=== PATIENT | female | born 1935 | race African-American/Black ===

== ENCOUNTER 2019-01-25 17:09 | Inpatient (IN) ==
[2019-01-25] MEDS ORDERED: SODIUM CHLORIDE 0.9% 1,000 ML IV STA (18:15)
[2019-01-25 19:03] LABS: Basophils # 0.1 10*3/uL (0.0-0.2); Basophils % 0.4 % (0.0-0.8); Eosinophils % 0.2 % (0.00-10.9); Hematocrit 34.6 VOL% (35.7-47.0); Hemoglobin 10.6 GM/DL (12.0-16.0); Immature Granulocytes % 0.5 %; Immature Granulocytes Absolute 0.07 #; Mean Corpuscular HGB Conc 30.6 GM/DL (32-36); Mean Corpuscular Volume 78.3 FL (87-102); Mean Platelet Volume 12.2 FL (9.6-12.0); Monocytes % 8.2 % (1.7-12.7); Neutrophils % 83.7 % (38.7-73.9); Red Blood Count 4.42 MC/CUMM (3.8-5.5); Red Cell Distribution Width 19.9 % (9.3-17.3); White Blood Count 13.5 T/CUMM (4-12)
[2019-01-25 19:04] LABS: Platelet Count 290 T/CUMM (130-400)
[2019-01-25 19:09] LABS: PT Patient Result 10.5 SECS; Partial Thromboplastin Time 26.1 SECS (0-40)
[2019-01-25 19:13] LABS: Alanine Aminotransferase 20 U/L (13-56); Albumin 3.2 G/DL (3.4-5.0); Alkaline Phosphatase 88 U/L (45-117); Aspartate Amino Transferase 16 U/L (0-37); Bilirubin,Total < 0.39 MG/DL (0.2-1.0); Blood Urea Nitrogen 21 MG/DL (7-18); Calcium 9.1 MG/DL (8.5-10.1); Glucose 118 MG/DL (74-106); Total Protein 8.6 G/DL (6.4-8.3)
[2019-01-25 19:14] LABS: Troponin I < 0.015 NG/ML (0.00-0.045)
[2019-01-25] MEDS ORDERED: PANTOPRAZOLE 40 MG VIAL IV SCH (23:07)
[2019-01-26] MEDS: SODIUM CHLORIDE 0.9% 1,000 ML IV SCH ×2 (00:02→12:30)
[2019-01-26] MEDS: FAMOTIDINE 20 MG/2 ML VIAL IV SCH (01:33)
[2019-01-26 05:47] LABS: Basophils % 0.3 % (0.0-0.8); Eosinophils # 0.1 10*3/uL (0.0-0.87); Eosinophils % 0.6 % (0.00-10.9); Hematocrit 30.7 VOL% (35.7-47.0); Hemoglobin 9.2 GM/DL (12.0-16.0); Immature Granulocytes % 0.4 %; Immature Granulocytes Absolute 0.04 #; Lymphocytes # 1.1 10*3/uL (1.4-4.0); Lymphocytes % 11.1 % (21.3-54.2); Mean Corpuscular Volume 78.5 FL (87-102); Mean Platelet Volume 10.6 FL (9.6-12.0); Monocytes % 11.1 % (1.7-12.7); Neutrophils % 76.5 % (38.7-73.9); Platelet Count 226 T/CUMM (130-400); Red Blood Count 3.91 MC/CUMM (3.8-5.5); Red Cell Distribution Width 19.8 % (9.3-17.3); White Blood Count 9.5 T/CUMM (4-12)
[2019-01-26 06:00] LABS: Calcium 8.5 MG/DL (8.5-10.1); Osmolality,Calculated 280.4 MOS/KG (273-304)
[2019-01-26] MEDS ORDERED: DEXTROSE 10% 250 ML BAG IV PRN (16:00)
[2019-01-26] MEDS ORDERED: GLUCAGON 1 MG VIAL IM PRN (16:00)
[2019-01-26] MEDS: INSULIN REGULAR 100 UNIT/ML SUBCUT SCH ×2 (18:31→23:30)
[2019-01-26] MEDS: SIMVASTATIN 10 MG TABLET PO SCH (20:56)
[2019-01-27 01:10] LABS: Apearance,Urine CLEAR (Clear); Bacteria,Urine Occasional /HPF (Few); Bilirubin,Urine Negative (Negative); Blood, Urine Negative (Negative); Glucose,Urine (UA) Negative (Negative); Hyaline Casts,Urine 3 /LPF (0-3); Ketones,Urine 20 mg/dL (Negative); Mucus,Urine Occasional /LPF (Occasional); Nitrite,Urine Negative (Negative); Protein,Urine Negative; RBC,Urine <1 /HPF (0-4); Squamous Epithelial Cell,Urine Occasional /HPF (0-10); Urine Color Yellow (Yellow); Urine Specific Gravity 1.015 (1.001-1.035); WBC,Urine 1 /HPF (0-6)
[2019-01-27] MEDS: FAMOTIDINE 20 MG/2 ML VIAL IV SCH (01:55)
[2019-01-27] MEDS: SODIUM CHLORIDE 0.9% 1,000 ML IV SCH ×2 (01:55→20:43)
[2019-01-27 05:53] LABS: Basophils % 0.4 % (0.0-0.8); Eosinophils # 0.1 10*3/uL (0.0-0.87); Hematocrit 31.6 VOL% (35.7-47.0); Hemoglobin 9.6 GM/DL (12.0-16.0); Immature Granulocytes % 0.5 %; Immature Granulocytes Absolute 0.05 #; Lymphocytes # 1.5 10*3/uL (1.4-4.0); Lymphocytes % 14.1 % (21.3-54.2); Mean Corpuscular HGB Conc 30.4 GM/DL (32-36); Mean Platelet Volume 11.2 FL (9.6-12.0); Monocytes % 10.6 % (1.7-12.7); Neutrophils % 73.4 % (38.7-73.9); Platelet Count 245 T/CUMM (130-400); White Blood Count 10.6 T/CUMM (4-12)
[2019-01-27] MEDS: INSULIN REGULAR 100 UNIT/ML SUBCUT SCH ×3 (06:12→19:05)
[2019-01-27 06:23] LABS: Albumin 2.7 G/DL (3.4-5.0); Bilirubin,Total 0.4 MG/DL (0.2-1.0); Calcium 8.7 MG/DL (8.5-10.1); Osmolality,Calculated 279.4 MOS/KG (273-304); Total Protein 7.1 G/DL (6.4-8.3)
[2019-01-27] MEDS ORDERED: LIDOCAINE 100 MG/5 ML SYRINGE ONE (09:00)
[2019-01-27] MEDS ORDERED: PROPOFOL 200 MG/20 ML VIAL IV ONE (09:00)
[2019-01-27] MEDS: LACTATED RINGERS 1,000 ML IV SCH (09:48)
[2019-01-27] MEDS: VERAPAMIL SR 240 MG TABLET PO SCH (14:09)
[2019-01-27] MEDS: ESCITALOPRAM 10 MG TABLET PO SCH (14:09)
[2019-01-27] MEDS: PANTOPRAZOLE 40 MG TABLET PO SCH ×2 (14:09→21:48)
[2019-01-27] MEDS: SIMVASTATIN 10 MG TABLET PO SCH (21:48)
[2019-01-28] MEDS: FAMOTIDINE 20 MG/2 ML VIAL IV SCH (01:37)
[2019-01-28] MEDS: INSULIN REGULAR 100 UNIT/ML SUBCUT SCH ×5 (05:30→23:52)
[2019-01-28] MEDS: LACTATED RINGERS 1,000 ML IV SCH (08:09)
[2019-01-28] MEDS: VERAPAMIL SR 240 MG TABLET PO SCH (09:28)
[2019-01-28] MEDS: ESCITALOPRAM 10 MG TABLET PO SCH (09:28)
[2019-01-28] MEDS: PANTOPRAZOLE 40 MG TABLET PO SCH ×2 (09:28→20:27)
[2019-01-28] MEDS: SODIUM CHLORIDE 0.9% 1,000 ML IV SCH ×2 (09:30→23:51)
[2019-01-28] MEDS: SIMVASTATIN 10 MG TABLET PO SCH (20:27)
[2019-01-29] MEDS: FAMOTIDINE 20 MG/2 ML VIAL IV SCH (02:24)
[2019-01-29] MEDS: INSULIN REGULAR 100 UNIT/ML SUBCUT SCH ×3 (05:44→18:14)
[2019-01-29] MEDS: PANTOPRAZOLE 40 MG TABLET PO SCH (09:50)
[2019-01-29] MEDS: LACTULOSE 20 GM/30 ML UDCUP PO SCH (09:50)
[2019-01-29] MEDS: ESCITALOPRAM 10 MG TABLET PO SCH (09:50)
[2019-01-29] MEDS: VERAPAMIL SR 240 MG TABLET PO SCH (09:50)
[2019-01-29] MEDS: LACTATED RINGERS 1,000 ML IV SCH (09:51)
[2019-01-29] MEDS: ONDANSETRON 4 MG/2 ML VIAL IV PRN ×2 (12:26→16:23)
[2019-01-29] MEDS: SODIUM CHLORIDE 0.9% 1,000 ML IV SCH ×2 (13:05→23:56)
[2019-01-29] MEDS: SIMVASTATIN 10 MG TABLET PO SCH (21:12)
[2019-01-30] MEDS: INSULIN REGULAR 100 UNIT/ML SUBCUT SCH ×4 (00:45→17:35)
[2019-01-30] MEDS: FAMOTIDINE 20 MG/2 ML VIAL IV SCH (00:46)
[2019-01-30 04:46] LABS: Basophils % 0.2 % (0.0-0.8); Eosinophils % 0.1 % (0.00-10.9); Hematocrit 30.5 VOL% (35.7-47.0); Hemoglobin 9.1 GM/DL (12.0-16.0); Immature Granulocytes % 0.6 %; Immature Granulocytes Absolute 0.08 #; Lymphocytes # 1.2 10*3/uL (1.4-4.0); Lymphocytes % 8.2 % (21.3-54.2); Mean Corpuscular HGB Conc 29.8 GM/DL (32-36); Mean Platelet Volume 11.6 FL (9.6-12.0); Monocytes % 7.9 % (1.7-12.7); Platelet Count 257 T/CUMM (130-400); Red Blood Count 3.86 MC/CUMM (3.8-5.5); Red Cell Distribution Width 19.7 % (9.3-17.3); White Blood Count 14.4 T/CUMM (4-12)
[2019-01-30 05:02] LABS: Calcium 8.9 MG/DL (8.5-10.1); Osmolality,Calculated 284.3 MOS/KG (273-304)
[2019-01-30] MEDS: LACTULOSE 20 GM/30 ML UDCUP PO SCH (09:00)
[2019-01-30] MEDS: LACTATED RINGERS 1,000 ML IV SCH (09:41)
[2019-01-30] MEDS: PANTOPRAZOLE 40 MG VIAL IV SCH ×2 (12:34→20:18)
[2019-01-30] MEDS: SODIUM CHLORIDE 0.9% 1,000 ML IV SCH (12:36)
[2019-01-30] MEDS: ESCITALOPRAM 10 MG TABLET PO SCH (12:39)
[2019-01-30] MEDS: VERAPAMIL SR 240 MG TABLET PO SCH (12:39)
[2019-01-30] MEDS: SIMVASTATIN 10 MG TABLET PO SCH (20:18)
[2019-01-31] MEDS: SODIUM CHLORIDE 0.9% 1,000 ML IV SCH ×3 (00:24→15:46)
[2019-01-31] MEDS: INSULIN REGULAR 100 UNIT/ML SUBCUT SCH ×4 (00:24→17:55)
[2019-01-31] MEDS: FAMOTIDINE 20 MG/2 ML VIAL IV SCH (00:36)
[2019-01-31 07:52] LABS: Basophils % 0.3 % (0.0-0.8); Eosinophils # 0.3 10*3/uL (0.0-0.87); Eosinophils % 2.3 % (0.00-10.9); Hemoglobin 9.1 GM/DL (12.0-16.0); Immature Granulocytes % 0.8 %; Immature Granulocytes Absolute 0.09 #; Lymphocytes # 1.1 10*3/uL (1.4-4.0); Lymphocytes % 9.4 % (21.3-54.2); Mean Corpuscular HGB Conc 29.4 GM/DL (32-36); Mean Corpuscular Volume 79.7 FL (87-102); Mean Platelet Volume 11.3 FL (9.6-12.0); Monocytes % 7.4 % (1.7-12.7); Neutrophils % 79.8 % (38.7-73.9); Platelet Count 254 T/CUMM (130-400); Red Blood Count 3.89 MC/CUMM (3.8-5.5); Red Cell Distribution Width 20.4 % (9.3-17.3); White Blood Count 11.9 T/CUMM (4-12)
[2019-01-31 08:10] LABS: Albumin 2.9 G/DL (3.4-5.0); Bilirubin,Total 0.6 MG/DL (0.2-1.0); Total Protein 7.1 G/DL (6.4-8.3)
[2019-01-31] MEDS: ESCITALOPRAM 10 MG TABLET PO SCH (09:08)
[2019-01-31] MEDS: VERAPAMIL SR 240 MG TABLET PO SCH (09:08)
[2019-01-31] MEDS: PANTOPRAZOLE 40 MG VIAL IV SCH ×2 (09:08→21:33)
[2019-01-31] MEDS: LACTULOSE 20 GM/30 ML UDCUP PO SCH ×2 (09:09→09:24)
[2019-01-31] MEDS: LACTATED RINGERS 1,000 ML IV SCH (09:09)
[2019-01-31] MEDS: SIMVASTATIN 10 MG TABLET PO SCH (21:33)
[2019-02-01] MEDS: FAMOTIDINE 20 MG/2 ML VIAL IV SCH (02:56)
[2019-02-01] MEDS: ONDANSETRON 4 MG/2 ML VIAL IV PRN ×2 (03:02→12:58)
[2019-02-01] MEDS: SODIUM CHLORIDE 0.9% 1,000 ML IV SCH ×2 (05:23→16:22)
[2019-02-01] MEDS: INSULIN REGULAR 100 UNIT/ML SUBCUT SCH ×4 (06:01→18:02)
[2019-02-01 06:18] LABS: Basophils % 0.3 % (0.0-0.8); Eosinophils # 0.1 10*3/uL (0.0-0.87); Eosinophils % 0.6 % (0.00-10.9); Hematocrit 30.2 VOL% (35.7-47.0); Immature Granulocytes % 0.9 %; Immature Granulocytes Absolute 0.11 #; Lymphocytes # 1.2 10*3/uL (1.4-4.0); Lymphocytes % 9.3 % (21.3-54.2); Mean Corpuscular HGB Conc 29.5 GM/DL (32-36); Mean Corpuscular Volume 79.5 FL (87-102); Mean Platelet Volume 12.2 FL (9.6-12.0); Monocytes % 6.4 % (1.7-12.7); Neutrophils % 82.5 % (38.7-73.9); Platelet Count 252 T/CUMM (130-400); Red Cell Distribution Width 20.2 % (9.3-17.3); White Blood Count 12.9 T/CUMM (4-12)
[2019-02-01 06:20] LABS: Hemoglobin 8.9 GM/DL (12.0-16.0)
[2019-02-01 06:32] LABS: Albumin 2.7 G/DL (3.4-5.0); Bilirubin,Total 0.5 MG/DL (0.2-1.0); Calcium 8.7 MG/DL (8.5-10.1); Hypochromasia 1+; Osmolality,Calculated 284.8 MOS/KG (273-304); Platelet Estimate Adequate
[2019-02-01] MEDS: VERAPAMIL SR 240 MG TABLET PO SCH (09:17)
[2019-02-01] MEDS: PANTOPRAZOLE 40 MG VIAL IV SCH ×2 (09:21→20:15)
[2019-02-01] MEDS: LACTATED RINGERS 1,000 ML IV SCH (09:23)
[2019-02-01] MEDS: LACTULOSE 20 GM/30 ML UDCUP PO SCH (09:23)
[2019-02-01] MEDS: FLUTICASONE 50 MCG NASAL SPRAY 16 GM BOTTLE BOTH NARES SCH ×2 (09:23→20:10)
[2019-02-01] MEDS: ESCITALOPRAM 10 MG TABLET PO SCH (09:24)
[2019-02-01] MEDS: SIMVASTATIN 10 MG TABLET PO SCH (20:13)
[2019-02-02] MEDS: INSULIN REGULAR 100 UNIT/ML SUBCUT SCH ×4 (00:15→17:39)
[2019-02-02] MEDS: ONDANSETRON 4 MG/2 ML VIAL IV PRN ×2 (05:50→11:26)
[2019-02-02] MEDS: SODIUM CHLORIDE 0.9% 1,000 ML IV SCH ×2 (06:17→18:07)
[2019-02-02 06:26] LABS: Basophils % 0.3 % (0.0-0.8); Eosinophils # 0.1 10*3/uL (0.0-0.87); Hematocrit 29.2 VOL% (35.7-47.0); Hemoglobin 8.7 GM/DL (12.0-16.0); Immature Granulocytes Absolute 0.13 #; Lymphocytes # 0.8 10*3/uL (1.4-4.0); Lymphocytes % 6.1 % (21.3-54.2); Mean Corpuscular HGB Conc 29.8 GM/DL (32-36); Mean Corpuscular Volume 79.3 FL (87-102); Mean Platelet Volume 10.7 FL (9.6-12.0); Monocytes % 7.6 % (1.7-12.7); NRBC # 0.02 10*3/uL; Platelet Count 234 T/CUMM (130-400); Red Blood Count 3.68 MC/CUMM (3.8-5.5)
[2019-02-02 06:47] LABS: Alanine Aminotransferase 9 U/L (13-56); Albumin 2.8 G/DL (3.4-5.0); Alkaline Phosphatase 69 U/L (45-117); Aspartate Amino Transferase 13 U/L (0-37); Bilirubin,Total < 0.39 MG/DL (0.2-1.0); Blood Urea Nitrogen 12 MG/DL (7-18); Calcium 8.8 MG/DL (8.5-10.1); Glucose 114 MG/DL (74-106); Osmolality,Calculated 281.3 MOS/KG (273-304); Total Protein 6.9 G/DL (6.4-8.3)
[2019-02-02 08:12] LABS: Cancer Antigen 19-9 9.9 U/ML (0-37)
[2019-02-02] MEDS: VERAPAMIL SR 240 MG TABLET PO SCH (08:44)
[2019-02-02] MEDS: PANTOPRAZOLE 40 MG VIAL IV SCH ×2 (08:44→20:56)
[2019-02-02] MEDS: ESCITALOPRAM 10 MG TABLET PO SCH (08:44)
[2019-02-02] MEDS: LACTULOSE 20 GM/30 ML UDCUP PO SCH (08:49)
[2019-02-02] MEDS: FLUTICASONE 50 MCG NASAL SPRAY 16 GM BOTTLE BOTH NARES SCH (08:49)
[2019-02-02] MEDS: LACTATED RINGERS 1,000 ML IV SCH (08:54)
[2019-02-02] MEDS ORDERED: BISACODYL 10 MG SUPP RECTAL ONE (11:42)
[2019-02-02] MEDS ORDERED: BISACODYL 10 MG SUPP RECTAL PRN (11:42)
[2019-02-02] MEDS: SIMVASTATIN 10 MG TABLET PO SCH (20:46)
[2019-02-03] MEDS: INSULIN REGULAR 100 UNIT/ML SUBCUT SCH ×4 (00:14→18:26)
[2019-02-03 05:26] LABS: Basophils % 0.4 % (0.0-0.8); Eosinophils # 0.2 10*3/uL (0.0-0.87); Eosinophils % 1.5 % (0.00-10.9); Hematocrit 29.3 VOL% (35.7-47.0); Hemoglobin 8.5 GM/DL (12.0-16.0); Immature Granulocytes % 0.9 %; Lymphocytes % 9.5 % (21.3-54.2); Mean Corpuscular Volume 79.4 FL (87-102); Monocytes % 8.6 % (1.7-12.7); Neutrophils % 79.1 % (38.7-73.9); Platelet Count 238 T/CUMM (130-400); Red Blood Count 3.69 MC/CUMM (3.8-5.5); White Blood Count 10.9 T/CUMM (4-12)
[2019-02-03 05:46] LABS: Alanine Aminotransferase 13 U/L (13-56); Albumin 2.5 G/DL (3.4-5.0); Alkaline Phosphatase 70 U/L (45-117); Aspartate Amino Transferase 12 U/L (0-37); Bilirubin,Total < 0.39 MG/DL (0.2-1.0); Blood Urea Nitrogen 10 MG/DL (7-18); Calcium 8.7 MG/DL (8.5-10.1); Glucose 81 MG/DL (74-106); Osmolality,Calculated 283.8 MOS/KG (273-304); Total Protein 6.8 G/DL (6.4-8.3)
[2019-02-03 06:04] LABS: % Iron Saturation 8.4 % (18-50); Ferritin 34.2 ng/ml (8-252)
[2019-02-03] MEDS: VERAPAMIL SR 240 MG TABLET PO SCH (09:00)
[2019-02-03] MEDS: ESCITALOPRAM 10 MG TABLET PO SCH (09:00)
[2019-02-03] MEDS: LACTULOSE 20 GM/30 ML UDCUP PO SCH (09:00)
[2019-02-03] MEDS: FLUTICASONE 50 MCG NASAL SPRAY 16 GM BOTTLE BOTH NARES SCH (09:00)
[2019-02-03] MEDS: SODIUM CHLORIDE 0.9% 1,000 ML IV SCH ×2 (10:06→20:44)
[2019-02-03] MEDS: PANTOPRAZOLE 40 MG VIAL IV SCH ×2 (10:07→20:45)
[2019-02-03] MEDS ORDERED: BUPIVACAINE MPF 0.25% /EPI 30 ML VIAL ONE (14:09)
[2019-02-03] MEDS ORDERED: LIDOCAINE 1% 20 ML VIAL ONE (14:09)
[2019-02-03] MEDS ORDERED: TISSUE ADHESIVE 1 EACH APPLICATOR TOP ONE (14:09)
[2019-02-03] MEDS ORDERED: ALBUMIN 5% 12.5 GM/250 ML VIAL IV ONE (15:09)
[2019-02-03] MEDS ORDERED: PROPOFOL 200 MG/20 ML VIAL IV ONE (17:08)
[2019-02-03] MEDS ORDERED: SEVOFLURANE 1 UNIT/15 MINUTE INH ONE (17:08)
[2019-02-03] MEDS ORDERED: fentaNYL 100 MCG/2 ML VIAL ONE (17:08)
[2019-02-03] MEDS ORDERED: SUCCINYLCHOLINE 200 MG/10 ML VIAL ONE (17:09)
[2019-02-03] MEDS ORDERED: ROCURONIUM 100 MG/10 ML VIAL IV ONE (17:09)
[2019-02-03] MEDS ORDERED: LACTATED RINGERS 1,000 ML IV ONE (17:09)
[2019-02-03] MEDS ORDERED: LABETALOL 20 MG/4 ML SYRINGE IV ONE (17:20)
[2019-02-03] MEDS: HYDROmorphone 2 MG/1 ML VIAL IV PRN (18:20)
[2019-02-03] MEDS: LACTATED RINGERS 1,000 ML IV SCH (18:26)
[2019-02-03] MEDS ORDERED: hydrALAZINE 20 MG/1 ML VIAL IV PRN (19:08)
[2019-02-03 21:30] LABS: Basophils % 0.3 % (0.0-0.8); Hematocrit 33.6 VOL% (35.7-47.0); Hemoglobin 9.6 GM/DL (12.0-16.0); Immature Granulocytes % 0.6 %; Immature Granulocytes Absolute 0.08 #; Lymphocytes # 0.4 10*3/uL (1.4-4.0); Lymphocytes % 3.1 % (21.3-54.2); Mean Corpuscular HGB Conc 28.6 GM/DL (32-36); Mean Corpuscular Volume 83.4 FL (87-102); Mean Platelet Volume 11.6 FL (9.6-12.0); Monocytes % 7.1 % (1.7-12.7); NRBC # 0.02 10*3/uL; Neutrophils % 88.9 % (38.7-73.9); Platelet Count 193 T/CUMM (130-400); Red Blood Count 4.03 MC/CUMM (3.8-5.5); Red Cell Distribution Width 20.9 % (9.3-17.3)
[2019-02-03 21:45] LABS: Hypochromasia Slight; Lymphocytes 7 % (20-55); Microcytosis Slight; Nucleated Red Blood Cells 3 (0-5); Platelet Estimate Normal; Segmented Neutrophils 91 % (50-85); Total Cells Counted 100
[2019-02-03 22:03] LABS: Calcium 8.4 MG/DL (8.5-10.1)
[2019-02-03] MEDS: SIMVASTATIN 10 MG TABLET PO SCH (23:13)
[2019-02-04] MEDS ORDERED: LACTATED RINGERS 1,000 ML IV ONE ×3 (00:03→14:59)
[2019-02-04] MEDS: INSULIN REGULAR 100 UNIT/ML SUBCUT SCH ×4 (00:30→18:42)
[2019-02-04] MEDS: PIPERACILLIN/TAZOBACTAM 3,375 MG in SODIUM CHLORIDE 0.9% 100 ML IV SCH ×2 (01:40→13:27)
[2019-02-04 05:30] LABS: Albumin 2.5 G/DL (3.4-5.0); Bilirubin,Total 0.4 MG/DL (0.2-1.0); Calcium 8.2 MG/DL (8.5-10.1); Total Protein 6.3 G/DL (6.4-8.3)
[2019-02-04 05:53] LABS: Basophils # 0.1 10*3/uL (0.0-0.2); Basophils % 0.2 % (0.0-0.8); Hematocrit 31.7 VOL% (35.7-47.0); Hemoglobin 9.3 GM/DL (12.0-16.0); Immature Granulocytes % 0.7 %; Immature Granulocytes Absolute 0.15 #; Lymphocytes # 0.5 10*3/uL (1.4-4.0); Lymphocytes % 2.4 % (21.3-54.2); Mean Corpuscular HGB Conc 29.3 GM/DL (32-36); Mean Corpuscular Volume 81.5 FL (87-102); Mean Platelet Volume 11.5 FL (9.6-12.0); Monocytes % 4.2 % (1.7-12.7); Neutrophils % 92.5 % (38.7-73.9); Platelet Count 241 T/CUMM (130-400); Red Blood Count 3.89 MC/CUMM (3.8-5.5); Red Cell Distribution Width 20.7 % (9.3-17.3); White Blood Count 21.1 T/CUMM (4-12)
[2019-02-04 06:06] LABS: Band Neutrophils 10 % (0-10); Hypochromasia 1+; Lymphocytes 1 % (20-55); Microcytosis Slight; Ovalocytes Slight; Platelet Estimate Adequate; Segmented Neutrophils 85 % (50-85); Total Cells Counted 100
[2019-02-04] MEDS ORDERED: MAGNESIUM SULF RIDER 2 GM in PREMIX 1 EACH IV PRN (08:20)
[2019-02-04] MEDS ORDERED: MAGNESIUM SULF RIDER 4 GM in PREMIX 1 EACH IV PRN (08:20)
[2019-02-04] MEDS: LACTATED RINGERS 1,000 ML IV SCH (08:34)
[2019-02-04] MEDS: VERAPAMIL SR 240 MG TABLET PO SCH (08:36)
[2019-02-04] MEDS: LACTULOSE 20 GM/30 ML UDCUP PO SCH (08:58)
[2019-02-04] MEDS: ESCITALOPRAM 10 MG TABLET PO SCH (08:58)
[2019-02-04] MEDS: HYDROmorphone 2 MG/1 ML VIAL IV PRN ×3 (08:58→18:51)
[2019-02-04] MEDS: PANTOPRAZOLE 40 MG VIAL IV SCH ×2 (08:58→21:18)
[2019-02-04] MEDS: POTASSIUM CHLORIDE RIDER 10 MEQ in PREMIX 1 EACH IV PRN ×2 (08:59→12:27)
[2019-02-04] MEDS: ONDANSETRON 4 MG/2 ML VIAL IV PRN (09:00)
[2019-02-04] MEDS: FLUTICASONE 50 MCG NASAL SPRAY 16 GM BOTTLE BOTH NARES SCH (10:47)
[2019-02-04] MEDS: SODIUM CHLORIDE 0.9% 1,000 ML IV SCH ×2 (13:26→18:52)
[2019-02-04] MEDS ORDERED: LACTATED RINGERS 2,000 ML IV ONE (15:17)
[2019-02-04] MEDS ORDERED: SEVOFLURANE 1 UNIT/15 MINUTE INH ONE (17:23)
[2019-02-04] MEDS ORDERED: fentaNYL 100 MCG/2 ML VIAL ONE (17:23)
[2019-02-04] MEDS ORDERED: SODIUM CHLORIDE 0.9% 500 ML IV ONE (17:24)
[2019-02-04] MEDS ORDERED: ROCURONIUM 100 MG/10 ML VIAL IV ONE (17:24)
[2019-02-04] MEDS ORDERED: SUCCINYLCHOLINE 200 MG/10 ML VIAL ONE (17:24)
[2019-02-04] MEDS ORDERED: ETOMIDATE 40 MG/20 ML VIAL IV ONE (17:24)
[2019-02-04] MEDS ORDERED: MIDAZOLAM 2 MG/2 ML VIAL ONE (17:24)
[2019-02-04] MEDS ORDERED: PROPOFOL 1,000 MG/100 ML BOTTLE IV ONE (18:27)
[2019-02-04] MEDS: PROPOFOL 1,000 MG/100 ML BOTTLE IV SCH (18:35)
[2019-02-04 20:57] LABS: Basophils # 0.1 10*3/uL (0.0-0.2); Basophils % 0.3 % (0.0-0.8); Hemoglobin 9.1 GM/DL (12.0-16.0); Immature Granulocytes Absolute 0.19 #; Lymphocytes # 0.5 10*3/uL (1.4-4.0); Lymphocytes % 2.8 % (21.3-54.2); Mean Corpuscular HGB Conc 29.4 GM/DL (32-36); Mean Corpuscular Volume 80.1 FL (87-102); Mean Platelet Volume 11.7 FL (9.6-12.0); Monocytes % 3.4 % (1.7-12.7); Neutrophils % 92.5 % (38.7-73.9); Platelet Count 230 T/CUMM (130-400); Red Blood Count 3.87 MC/CUMM (3.8-5.5); White Blood Count 19.3 T/CUMM (4-12)
[2019-02-04 21:16] LABS: Alanine Aminotransferase 11 U/L (13-56); Alkaline Phosphatase 54 U/L (45-117); Aspartate Amino Transferase 17 U/L (0-37); Bilirubin,Total < 0.39 MG/DL (0.2-1.0); Blood Urea Nitrogen 17 MG/DL (7-18); Calcium 7.9 MG/DL (8.5-10.1); Glucose 150 MG/DL (74-106); Total Protein 5.4 G/DL (6.4-8.3)
[2019-02-04 21:20] LABS: Band Neutrophils 2 % (0-10); Lymphocytes 2 % (20-55); Segmented Neutrophils 92 % (50-85); Total Cells Counted 100
[2019-02-04 21:22] LABS: Anisocytosis 1+; Burr Cells 1+; Elliptocytes Few; Macrocytosis Slight; Microcytosis 1+; Poikilocytosis 1+; Polychromasia Few
[2019-02-04 21:23] LABS: Platelet Estimate Normal
[2019-02-04 22:35] LABS: ABG Base Excess -5.7 MMOL/L (-2.5-2.5); ABG HCO3 19.7 MMOL/L (20-26); ABG Oxygen Saturation 99.8 % (95-100); ABG PCO2 37.7 MM HG (35-48); ABG PH 7.327 (7.35-7.45); ABG TCO2 18.3 MMOL/L (23-27)
[2019-02-04] MEDS: SIMVASTATIN 10 MG TABLET PO SCH (23:13)
[2019-02-05] MEDS: PIPERACILLIN/TAZOBACTAM 3,375 MG in SODIUM CHLORIDE 0.9% 100 ML IV SCH ×3 (00:24→17:30)
[2019-02-05] MEDS: INSULIN REGULAR 100 UNIT/ML SUBCUT SCH ×4 (00:24→18:05)
[2019-02-05] MEDS ORDERED: SODIUM CHLORIDE 0.9% 500 ML IV ONE (03:55)
[2019-02-05] MEDS: PROPOFOL 1,000 MG/100 ML BOTTLE IV SCH ×3 (04:30→19:02)
[2019-02-05 04:58] LABS: ABG HCO3 19.5 MMOL/L (20-26); ABG Oxygen Saturation 99.7 % (95-100); ABG PCO2 39.2 MM HG (35-48); ABG TCO2 18.3 MMOL/L (23-27); Allen Test Positive; Pt O2 Delivery Device Ventilator
[2019-02-05 05:26] LABS: Basophils % 0.2 % (0.0-0.8); Hematocrit 29.1 VOL% (35.7-47.0); Hemoglobin 8.8 GM/DL (12.0-16.0); Immature Granulocytes % 0.8 %; Immature Granulocytes Absolute 0.18 #; Lymphocytes # 0.6 10*3/uL (1.4-4.0); Lymphocytes % 2.4 % (21.3-54.2); Mean Corpuscular HGB Conc 30.2 GM/DL (32-36); Mean Corpuscular Volume 78.6 FL (87-102); Mean Platelet Volume 11.4 FL (9.6-12.0); Monocytes % 3.2 % (1.7-12.7); Neutrophils % 93.4 % (38.7-73.9); Platelet Count 229 T/CUMM (130-400); Red Cell Distribution Width 20.9 % (9.3-17.3); White Blood Count 22.8 T/CUMM (4-12)
[2019-02-05 05:54] LABS: Alanine Aminotransferase 9 U/L (13-56); Albumin 1.9 G/DL (3.4-5.0); Alkaline Phosphatase 58 U/L (45-117); Aspartate Amino Transferase 13 U/L (0-37); Bilirubin,Total < 0.39 MG/DL (0.2-1.0); Blood Urea Nitrogen 20 MG/DL (7-18); Calcium 7.7 MG/DL (8.5-10.1); Glucose 136 MG/DL (74-106); Osmolality,Calculated 292.7 MOS/KG (273-304); Total Protein 5.2 G/DL (6.4-8.3)
[2019-02-05] MEDS: SODIUM CHLORIDE 0.9% 1,000 ML IV SCH ×2 (05:55→17:50)
[2019-02-05 06:02] LABS: Anisocytosis 1+; Band Neutrophils 26 % (0-10); Lymphocytes 1 % (20-55); Platelet Estimate Normal; Segmented Neutrophils 72 % (50-85); Total Cells Counted 100
[2019-02-05 06:03] LABS: Macrocytosis Slight; Target Cells Few
[2019-02-05 07:36] LABS: Allen Test Positive; Pt O2 Delivery Device Ventilator
[2019-02-05 07:38] LABS: ABG Base Excess -5.8 MMOL/L (-2.5-2.5); ABG HCO3 19.7 MMOL/L (20-26); ABG Oxygen Saturation 99.4 % (95-100); ABG PH 7.316 (7.35-7.45); ABG TCO2 18.5 MMOL/L (23-27)
[2019-02-05] MEDS ORDERED: LACTATED RINGERS 1,000 ML IV ONE ×2 (08:45→15:17)
[2019-02-05] MEDS: ESCITALOPRAM 10 MG TABLET PO SCH (09:10)
[2019-02-05] MEDS: LACTULOSE 20 GM/30 ML UDCUP PO SCH (09:46)
[2019-02-05] MEDS: PANTOPRAZOLE 40 MG VIAL IV SCH ×2 (09:46→21:16)
[2019-02-05] MEDS: FLUTICASONE 50 MCG NASAL SPRAY 16 GM BOTTLE BOTH NARES SCH (09:46)
[2019-02-05] MEDS: metroNIDAZOLE INJ 500 MG in PREMIX 1 EACH IV SCH ×2 (12:35→21:18)
[2019-02-06] MEDS: INSULIN REGULAR 100 UNIT/ML SUBCUT SCH ×4 (00:24→17:36)
[2019-02-06] MEDS: SODIUM CHLORIDE 0.9% 1,000 ML IV SCH ×4 (00:24→22:37)
[2019-02-06] MEDS: PIPERACILLIN/TAZOBACTAM 3,375 MG in SODIUM CHLORIDE 0.9% 100 ML IV SCH ×3 (01:37→17:36)
[2019-02-06] MEDS: metroNIDAZOLE INJ 500 MG in PREMIX 1 EACH IV SCH ×3 (02:37→19:45)
[2019-02-06 03:41] LABS: ABG HCO3 19.7 MMOL/L (20-26); ABG Oxygen Saturation 86.9 % (95-100); ABG PCO2 39.7 MM HG (35-48); ABG PH 7.314 (7.35-7.45); ABG TCO2 20.9 MMOL/L (23-27); Allen Test Positive; Pt O2 Delivery Device Ventilator
[2019-02-06 04:55] LABS: Basophils % 0.1 % (0.0-0.8); Eosinophils % 0.1 % (0.00-10.9); Hemoglobin 6.6 GM/DL (12.0-16.0); Immature Granulocytes % 1.2 %; Immature Granulocytes Absolute 0.24 #; Lymphocytes # 0.4 10*3/uL (1.4-4.0); Lymphocytes % 1.9 % (21.3-54.2); Mean Corpuscular Volume 78.9 FL (87-102); Mean Platelet Volume 12.3 FL (9.6-12.0); Monocytes % 2.4 % (1.7-12.7); Neutrophils % 94.3 % (38.7-73.9); Platelet Count 192 T/CUMM (130-400); Red Blood Count 2.79 MC/CUMM (3.8-5.5); Red Cell Distribution Width 20.6 % (9.3-17.3); White Blood Count 19.4 T/CUMM (4-12)
[2019-02-06 05:20] LABS: Calcium 7.5 MG/DL (8.5-10.1); Osmolality,Calculated 298.3 MOS/KG (273-304)
[2019-02-06 05:23] LABS: Anisocytosis 1+; Hypochromasia 1+; Lymphocytes 5 % (20-55); Microcytosis 1+; Ovalocytes 1+; Platelet Estimate Adequate; Segmented Neutrophils 91 % (50-85); Total Cells Counted 100
[2019-02-06] MEDS ORDERED: SODIUM CHLORIDE 0.9% 1,000 ML IV PRN (07:07)
[2019-02-06] MEDS ORDERED: FUROSEMIDE 40 MG/4 ML VIAL IV ONE (07:49)
[2019-02-06] MEDS: PANTOPRAZOLE 40 MG VIAL IV SCH ×2 (08:57→21:11)
[2019-02-06] MEDS: LACTULOSE 20 GM/30 ML UDCUP PO SCH (08:57)
[2019-02-06] MEDS: FLUTICASONE 50 MCG NASAL SPRAY 16 GM BOTTLE BOTH NARES SCH (09:15)
[2019-02-06] MEDS: POTASSIUM CHLORIDE RIDER 10 MEQ in PREMIX 1 EACH IV PRN ×3 (09:34→11:36)
[2019-02-06] MEDS: PROPOFOL 1,000 MG/100 ML BOTTLE IV SCH (11:40)
[2019-02-06 16:40] LABS: Hematocrit 29.6 VOL% (35.7-47.0)
[2019-02-06 16:42] LABS: Hemoglobin 9.1 GM/DL (12.0-16.0)
[2019-02-07] MEDS: PIPERACILLIN/TAZOBACTAM 3,375 MG in SODIUM CHLORIDE 0.9% 100 ML IV SCH ×3 (01:02→17:57)
[2019-02-07] MEDS: INSULIN REGULAR 100 UNIT/ML SUBCUT SCH ×4 (01:04→18:12)
[2019-02-07] MEDS: PROPOFOL 1,000 MG/100 ML BOTTLE IV SCH ×2 (01:06→21:56)
[2019-02-07] MEDS: metroNIDAZOLE INJ 500 MG in PREMIX 1 EACH IV SCH ×3 (03:28→21:55)
[2019-02-07 03:41] LABS: ABG Base Excess -5.7 MMOL/L (-2.5-2.5); ABG HCO3 19.2 MMOL/L (20-26); ABG Oxygen Saturation 97.9 % (95-100); ABG PCO2 35.4 MM HG (35-48); ABG PH 7.353 (7.35-7.45); ABG PO2 120.5 MM HG (80-95); ABG TCO2 20.3 MMOL/L (23-27); Allen Test Positive; Pt O2 Delivery Device Ventilator
[2019-02-07 08:59] LABS: Basophils # 0.1 10*3/uL (0.0-0.2); Basophils % 0.3 % (0.0-0.8); Eosinophils # 0.1 10*3/uL (0.0-0.87); Eosinophils % 0.4 % (0.00-10.9); Hematocrit 27.9 VOL% (35.7-47.0); Hemoglobin 8.7 GM/DL (12.0-16.0); Immature Granulocytes % 0.9 %; Immature Granulocytes Absolute 0.17 #; Lymphocytes # 0.6 10*3/uL (1.4-4.0); Lymphocytes % 3.5 % (21.3-54.2); Mean Corpuscular HGB Conc 31.2 GM/DL (32-36); Mean Corpuscular Volume 80.6 FL (87-102); Mean Platelet Volume 10.9 FL (9.6-12.0); Monocytes % 3.4 % (1.7-12.7); NRBC # 0.02 10*3/uL; Neutrophils % 91.5 % (38.7-73.9); Platelet Count 181 T/CUMM (130-400); Red Blood Count 3.46 MC/CUMM (3.8-5.5); Red Cell Distribution Width 20.2 % (9.3-17.3); White Blood Count 18.1 T/CUMM (4-12)
[2019-02-07 09:19] LABS: Band Neutrophils 2 % (0-10); Lymphocytes 2 % (20-55); Platelet Estimate Normal; Segmented Neutrophils 94 % (50-85); Total Cells Counted 100
[2019-02-07 09:20] LABS: Anisocytosis 2+; Poikilocytosis Slight; Polychromasia Slight; Target Cells Few
[2019-02-07 09:24] LABS: Calcium 7.8 MG/DL (8.5-10.1); Osmolality,Calculated 303.9 MOS/KG (273-304)
[2019-02-07] MEDS: LACTULOSE 20 GM/30 ML UDCUP PO SCH (09:41)
[2019-02-07] MEDS: PANTOPRAZOLE 40 MG VIAL IV SCH ×2 (09:41→21:55)
[2019-02-07] MEDS: FLUTICASONE 50 MCG NASAL SPRAY 16 GM BOTTLE BOTH NARES SCH (09:41)
[2019-02-07] MEDS: POTASSIUM CHLORIDE RIDER 10 MEQ in PREMIX 1 EACH IV PRN ×3 (13:40→17:30)
[2019-02-07] MEDS ORDERED: SODIUM CHLORIDE 0.45% 1,000 ML IV SCH (16:30)
[2019-02-07] MEDS ORDERED: TRACE ELEMENTS (5) 1 ML, MULTIVITAMIN INJ 10 ML in AMINO ACIDS/DEXT/LYTES 5-15% 2,000 ML IV SCH (17:00)
[2019-02-08] MEDS: INSULIN REGULAR 100 UNIT/ML SUBCUT SCH ×4 (00:14→18:05)
[2019-02-08] MEDS: PIPERACILLIN/TAZOBACTAM 3,375 MG in SODIUM CHLORIDE 0.9% 100 ML IV SCH ×3 (00:46→16:36)
[2019-02-08 03:59] LABS: ABG Base Excess -4.3 MMOL/L (-2.5-2.5); ABG HCO3 20.9 MMOL/L (20-26); ABG Oxygen Saturation 99.1 % (95-100); ABG PCO2 31.8 MM HG (35-48); ABG PH 7.402 (7.35-7.45); ABG TCO2 18.3 MMOL/L (23-27)
[2019-02-08] MEDS: metroNIDAZOLE INJ 500 MG in PREMIX 1 EACH IV SCH ×3 (04:34→18:07)
[2019-02-08 04:52] LABS: Basophils % 0.3 % (0.0-0.8); Eosinophils # 0.2 10*3/uL (0.0-0.87); Eosinophils % 1.3 % (0.00-10.9); Hemoglobin 8.7 GM/DL (12.0-16.0); Immature Granulocytes % 0.6 %; Immature Granulocytes Absolute 0.08 #; Lymphocytes # 0.6 10*3/uL (1.4-4.0); Lymphocytes % 4.7 % (21.3-54.2); Mean Corpuscular HGB Conc 32.2 GM/DL (32-36); Mean Corpuscular Volume 80.8 FL (87-102); Monocytes % 4.9 % (1.7-12.7); Neutrophils % 88.2 % (38.7-73.9); Platelet Count 204 T/CUMM (130-400); Red Blood Count 3.34 MC/CUMM (3.8-5.5); Red Cell Distribution Width 20.4 % (9.3-17.3); White Blood Count 13.4 T/CUMM (4-12)
[2019-02-08 05:17] LABS: Eosinophils 1 % (0-10); Hypochromasia 1+; Lymphocytes 1 % (20-55); Platelet Estimate Adequate; Segmented Neutrophils 94 % (50-85); Total Cells Counted 100
[2019-02-08 05:22] LABS: Albumin 1.4 G/DL (3.4-5.0); Bilirubin,Total 0.5 MG/DL (0.2-1.0); Calcium 7.8 MG/DL (8.5-10.1); Total Protein 5.1 G/DL (6.4-8.3)
[2019-02-08 05:25] LABS: Calcium 7.6 MG/DL (8.5-10.1); Osmolality,Calculated 304.7 MOS/KG (273-304); Prealbumin 3.3 MG/DL (20-40)
[2019-02-08] MEDS: POTASSIUM CHLORIDE RIDER 10 MEQ in PREMIX 1 EACH IV PRN ×2 (07:02→09:22)
[2019-02-08] MEDS ORDERED: FUROSEMIDE 40 MG/4 ML VIAL IV ONE (08:44)
[2019-02-08] MEDS: FLUTICASONE 50 MCG NASAL SPRAY 16 GM BOTTLE BOTH NARES SCH (09:25)
[2019-02-08] MEDS: PANTOPRAZOLE 40 MG VIAL IV SCH ×2 (09:25→20:43)
[2019-02-08] MEDS: LACTULOSE 20 GM/30 ML UDCUP PO SCH (09:26)
[2019-02-08] MEDS: DEXTROSE 5% 1,000 ML IV SCH (11:21)
[2019-02-09] MEDS: INSULIN REGULAR 100 UNIT/ML SUBCUT SCH ×4 (00:18→18:22)
[2019-02-09] MEDS: PIPERACILLIN/TAZOBACTAM 3,375 MG in SODIUM CHLORIDE 0.9% 100 ML IV SCH ×3 (00:39→17:09)
[2019-02-09] MEDS: metroNIDAZOLE INJ 500 MG in PREMIX 1 EACH IV SCH ×3 (03:35→18:33)
[2019-02-09 04:45] LABS: Basophils % 0.2 % (0.0-0.8); Eosinophils # 0.2 10*3/uL (0.0-0.87); Eosinophils % 2.1 % (0.00-10.9); Hematocrit 27.1 VOL% (35.7-47.0); Hemoglobin 8.6 GM/DL (12.0-16.0); Immature Granulocytes % 0.6 %; Immature Granulocytes Absolute 0.07 #; Lymphocytes # 0.6 10*3/uL (1.4-4.0); Lymphocytes % 5.1 % (21.3-54.2); Mean Corpuscular HGB Conc 31.7 GM/DL (32-36); Mean Corpuscular Volume 80.7 FL (87-102); Mean Platelet Volume 12.3 FL (9.6-12.0); Monocytes % 7.4 % (1.7-12.7); Neutrophils % 84.6 % (38.7-73.9); Platelet Count 204 T/CUMM (130-400); Red Blood Count 3.36 MC/CUMM (3.8-5.5); Red Cell Distribution Width 20.6 % (9.3-17.3)
[2019-02-09 05:06] LABS: Albumin 1.5 G/DL (3.4-5.0); Bilirubin,Total 0.4 MG/DL (0.2-1.0); Osmolality,Calculated 299.1 MOS/KG (273-304); Total Protein 5.2 G/DL (6.4-8.3)
[2019-02-09] MEDS: POTASSIUM CHLORIDE RIDER 10 MEQ in PREMIX 1 EACH IV PRN ×4 (06:06→11:34)
[2019-02-09] MEDS: DEXTROSE 5% 1,000 ML IV SCH (07:02)
[2019-02-09] MEDS: PANTOPRAZOLE 40 MG VIAL IV SCH ×2 (09:54→21:53)
[2019-02-09] MEDS: FLUTICASONE 50 MCG NASAL SPRAY 16 GM BOTTLE BOTH NARES SCH (09:54)
[2019-02-09] MEDS: LACTULOSE 20 GM/30 ML UDCUP PO SCH (09:54)
[2019-02-09] MEDS: FLUCONAZOLE INJ 200 MG in PREMIX 1 EACH IV SCH (13:23)
[2019-02-09] MEDS: SIMVASTATIN 10 MG TABLET PO SCH (21:53)
[2019-02-10] MEDS: INSULIN REGULAR 100 UNIT/ML SUBCUT SCH ×4 (00:42→18:40)
[2019-02-10] MEDS: PIPERACILLIN/TAZOBACTAM 3,375 MG in SODIUM CHLORIDE 0.9% 100 ML IV SCH ×3 (01:27→17:09)
[2019-02-10] MEDS: metroNIDAZOLE INJ 500 MG in PREMIX 1 EACH IV SCH ×3 (02:53→18:08)
[2019-02-10] MEDS: DEXTROSE 5% 1,000 ML IV SCH (03:02)
[2019-02-10 05:23] LABS: Albumin 1.4 G/DL (3.4-5.0); Bilirubin,Total 0.4 MG/DL (0.2-1.0); Calcium 7.7 MG/DL (8.5-10.1); Osmolality,Calculated 294.4 MOS/KG (273-304); Total Protein 4.9 G/DL (6.4-8.3)
[2019-02-10] MEDS: VERAPAMIL SR 240 MG TABLET PO SCH (09:41)
[2019-02-10] MEDS: ESCITALOPRAM 10 MG TABLET PO SCH (09:41)
[2019-02-10] MEDS: PANTOPRAZOLE 40 MG VIAL IV SCH ×2 (09:42→21:33)
[2019-02-10] MEDS: FLUTICASONE 50 MCG NASAL SPRAY 16 GM BOTTLE BOTH NARES SCH (09:45)
[2019-02-10] MEDS: LACTULOSE 20 GM/30 ML UDCUP PO SCH (09:46)
[2019-02-10] MEDS: POTASSIUM CHLORIDE RIDER 10 MEQ in PREMIX 1 EACH IV PRN ×3 (10:10→18:08)
[2019-02-10] MEDS: FLUCONAZOLE INJ 200 MG in PREMIX 1 EACH IV SCH (13:01)
[2019-02-10] MEDS: SIMVASTATIN 10 MG TABLET PO SCH (21:33)
[2019-02-11] MEDS: DEXTROSE 5% 1,000 ML IV SCH ×2 (00:46→18:30)
[2019-02-11] MEDS: INSULIN REGULAR 100 UNIT/ML SUBCUT SCH ×4 (00:48→18:30)
[2019-02-11] MEDS: PIPERACILLIN/TAZOBACTAM 3,375 MG in SODIUM CHLORIDE 0.9% 100 ML IV SCH ×2 (01:54→09:27)
[2019-02-11] MEDS: metroNIDAZOLE INJ 500 MG in PREMIX 1 EACH IV SCH ×3 (03:13→20:43)
[2019-02-11] MEDS: FLUTICASONE 50 MCG NASAL SPRAY 16 GM BOTTLE BOTH NARES SCH (09:26)
[2019-02-11] MEDS: VERAPAMIL SR 240 MG TABLET PO SCH (09:26)
[2019-02-11] MEDS: LACTULOSE 20 GM/30 ML UDCUP PO SCH (09:26)
[2019-02-11] MEDS: ESCITALOPRAM 10 MG TABLET PO SCH (09:26)
[2019-02-11] MEDS: PANTOPRAZOLE 40 MG VIAL IV SCH ×2 (09:27→20:39)
[2019-02-11] MEDS: SIMVASTATIN 10 MG TABLET PO SCH (20:43)
[2019-02-12] MEDS: INSULIN REGULAR 100 UNIT/ML SUBCUT SCH ×4 (00:31→17:43)
[2019-02-12] MEDS: metroNIDAZOLE INJ 500 MG in PREMIX 1 EACH IV SCH ×3 (03:15→18:37)
[2019-02-12] MEDS: LACTULOSE 20 GM/30 ML UDCUP PO SCH (08:59)
[2019-02-12] MEDS: ESCITALOPRAM 10 MG TABLET PO SCH (09:01)
[2019-02-12] MEDS: FLUTICASONE 50 MCG NASAL SPRAY 16 GM BOTTLE BOTH NARES SCH (09:01)
[2019-02-12] MEDS: VERAPAMIL SR 240 MG TABLET PO SCH (09:01)
[2019-02-12] MEDS: PANTOPRAZOLE 40 MG VIAL IV SCH ×2 (09:01→20:09)
[2019-02-12] MEDS: DEXTROSE 5% 1,000 ML IV SCH (14:30)
[2019-02-12] MEDS: SIMVASTATIN 10 MG TABLET PO SCH (20:09)
[2019-02-13] MEDS: INSULIN REGULAR 100 UNIT/ML SUBCUT SCH ×3 (01:05→13:22)
[2019-02-13 07:55] VITALS: BP 147/65
[2019-02-13] MEDS: VERAPAMIL SR 240 MG TABLET PO SCH (09:42)
[2019-02-13] MEDS: PANTOPRAZOLE 40 MG VIAL IV SCH (09:42)
[2019-02-13] MEDS: ESCITALOPRAM 10 MG TABLET PO SCH (09:43)
[2019-02-13] MEDS: LACTULOSE 20 GM/30 ML UDCUP PO SCH (09:43)
[2019-02-13] MEDS: FLUTICASONE 50 MCG NASAL SPRAY 16 GM BOTTLE BOTH NARES SCH (09:43)
[2019-02-13] MEDS: DEXTROSE 5% 1,000 ML IV SCH (12:13)
== END 2019-02-13 12:30 | disposition hospice, home (50) | DRG 326 ==
LOC: N.ED 17:09 → N.EDINP 17:09 → SUATTDRO 20:57 → N.5E 21:11 → SUATTDRO 01-28 15:15 → N.CC 02-03 17:46 → N.2E 02-09 12:37
PROVIDERS: ADMIT Internal Medicine; ATTEND Internal Medicine